=== PATIENT | male | born 1945 | race Caucasian/White ===

== ENCOUNTER 2020-12-27 17:39 | Emergency (ER) | payer MEDICARE, SELFPAY ==
[2020-12-27 18:00] VITALS: BP 107/60; PULSE 69; RESP 18; TEMP 35.7; O2SAT 99; BMI 24.5
[2020-12-27] MEDS: LIDO 1%/SOD BICARB 8.4% (10ML) 10 ML SYRINGE INJ (18:05)
[2020-12-27] MEDS: ACETAMINOPHEN 325 MG TABLET 650 MG PO (19:17)
[2020-12-27] MEDS: IBUPROFEN 400 MG TABLET PO (19:18)
--- NOTE | 2020-12-27 19:27 | ED_ITS ---
HPI - Extremity Injury (Lower) <CRISTIANE Ervin - Last Filed: 12/27/20 19:35> General Chief Complaint: Extremity Injury, Lower Stated Complaint: RT SHAW LACERATION POST FALL Time Seen by Provider: 12/27/20 17:52 Source: patient Mode of arrival: Family Vehicle Limitations: no limitations History of Present Illness HPI Narrative: 75-year-old male presents to the ED with right lower leg laceration after tripping on a step while going stairs and cutting his leg on [place]. He reports that he did not hit his head, he wrapped his leg with a pressure dressing and bleeding was controlled at the time of injury. His right leg laceration is approximately 6 cm long and through the subcutaneous layer. He did not take any medications prior to arrival. Related Data Home Medications Medication Instructions Recorded Confirmed tamsulosin 0.4 mg capsule (Flomax) 0.8 mg PO BID #0 05/03/12 Allergies Allergy/AdvReac Type Severity Reaction Status Date / Time egg [EGG] Allergy Unknown egg white Verified 12/27/20 18:05 Penicillins [PENICILLINS] Allergy Unknown Verified 12/27/20 18:05 prednisone [PREDNISONE] AdvReac Unknown hallucinati Verified 12/27/20 18:05 ons Review of Systems <CRISTIANE Ervin - Last Filed: 12/27/20 19:35> Review of Systems Narrative: General: denies fever, chills Head/Neck: denies headache, neck pain Eyes: denies visual changes, eye pain Cardio: denies chest pain, palpitations Respiratory: denies shortness of breath, cough GI: denies abdominal pain, nausea, vomiting, or diarrhea : denies dysuria, hematuria MSK: denies joint pain, muscle weakness Skin: denies rash, itching, right lower leg laceration Neuro: denies numbness, tingling Patient History <CRISTIANE Ervin - Last Filed: 12/27/20 19:35> Social History Smoking Status: Never smoker Smoking Status: Never smoker alcohol intake frequency: 0-2 drinks per day Substance Use Type: does not use Exam <CRISTIANE Ervin - Last Filed: 12/27/20 19:35> Narrative Exam Narrative: Independently reviewed vitals signs and nursing notes. General: Awake, alert, nontoxic, no cardiorespiratory distress Head/Neck: Atraumatic, neck full range of motion Eyes: EOMI, conjunctiva normal Nose: nares patent, no rhinorrhea Mouth/Throat: moist mucus membranes, posterior pharynx normal, no oral lesions Cardio: Regular rate and rhythm, no peripheral edema Respiratory: respirations unlabored without wheezing, stridor, or rales. No retractions. GI: Abdomen soft, nontender MSK: Moves all extremities, neurovascularly intact Skin: Normal capillary refill, no rash, right lower leg laceration is anterior, linear, mid shaft, 6 cm long, wound was irrigated with normal saline and hemostasis is achieved. Neuro: Normal speech and cognition, normal gait Initial Vital Signs Initial Vital Signs: Vital Signs Temperature 96.2 F L 12/27/20 18:00 Pulse Rate 69 12/27/20 18:00 Respiratory Rate 18 12/27/20 18:00 Blood Pressure 107/60 12/27/20 18:00 Pulse Oximetry 99 12/27/20 18:00 <Laura Fontana DO - Last Filed: 12/28/20 04:24> Initial Vital Signs Initial Vital Signs: Vital Signs Temperature 96.2 F L 12/27/20 18:00 Pulse Rate 69 12/27/20 18:00 Respiratory Rate 18 12/27/20 18:00 Blood Pressure 107/60 12/27/20 18:00 Pulse Oximetry 99 12/27/20 18:00 Procedures <CRISTIANE Ervin - Last Filed: 12/27/20 19:35> Laceration Repair Laceration 1: Time of procedure: 19:00 Site: lower extremity Side (If applicable): right Size (cm): 6 Description: linear Depth: simple, single layer Local Anesthetic: lidocaine 1% and with bicarb Amount of anesthesia used (mL): 5 Pre-repair: wound explored and irrigated extensively Skin layer closed with: nylon Size (cm): 4-0 Number of sutures: 14 Technique: simple, interrupted Course <CRISTIANE Ervin - Last Filed: 12/27/20 19:35> Orders Ordered: Discontinued Medications Acetaminophen (Acetaminophen 325 Mg Tablet) 650 mg PO NOW ONE Stop: 12/27/20 19:12 Last Admin: 12/27/20 19:17 Dose: 650 mg Documented by: DANDY Bacitracin (Bacitracin Oint 0.9 Gm Pckt) 1 applic TOP NOW ONE Stop: 12/27/20 19:25 Last Admin: 12/27/20 19:28 Dose: 1 applic Documented by: DANDY Ibuprofen (Ibuprofen 600 Mg Tablet) 600 mg PO NOW ONE Stop: 12/27/20 18:39 Last Admin: 12/27/20 19:11 Dose: Not Given Documented by: DANDY Ibuprofen (Ibuprofen 400 Mg Tablet) 400 mg PO NOW ONE Stop: 12/27/20 19:12 Last Admin: 12/27/20 19:18 Dose: 400 mg Documented by: DANDY Lidocaine/Sodium Bicarbonate (Lido 1%/Sod Bicarb 8.4% (10ml) 10 Ml Syringe) 10 ml INJ NOW ONE Stop: 12/27/20 18:01 Last Admin: 12/27/20 18:05 Dose: 10 ml Documented by: DANDY Vital Signs Vital signs: Vital Signs - 8 hr 12/27/20 18:00 Temperature 96.2 F L Pulse Rate 69 Respiratory Rate 18 Blood Pressure 107/60 Pulse Oximetry 99 <Laura Fontana DO - Last Filed: 12/28/20 04:24> Orders Ordered: Discontinued Medications Acetaminophen (Acetaminophen 325 Mg Tablet) 650 mg PO NOW ONE Stop: 12/27/20 19:12 Last Admin: 12/27/20 19:17 Dose: 650 mg Documented by: DANDY Bacitracin (Bacitracin Oint 0.9 Gm Pckt) 1 applic TOP NOW ONE Stop: 12/27/20 19:25 Last Admin: 12/27/20 19:28 Dose: 1 applic Documented by: DANDY Ibuprofen (Ibuprofen 600 Mg Tablet) 600 mg PO NOW ONE Stop: 12/27/20 18:39 Last Admin: 12/27/20 19:11 Dose: Not Given Documented by: DANDY Ibuprofen (Ibuprofen 400 Mg Tablet) 400 mg PO NOW ONE Stop: 12/27/20 19:12 Last Admin: 12/27/20 19:18 Dose: 400 mg Documented by: DANDY Lidocaine/Sodium Bicarbonate (Lido 1%/Sod Bicarb 8.4% (10ml) 10 Ml Syringe) 10 ml INJ NOW ONE Stop: 12/27/20 18:01 Last Admin: 12/27/20 18:05 Dose: 10 ml Documented by: DANDY Vital Signs Vital signs: Vital Signs - 8 hr 12/27/20 18:00 Temperature 96.2 F L Pulse Rate 69 Respiratory Rate 18 Blood Pressure 107/60 Pulse Oximetry 99 [facility] - Extremity Injury (Lower) <Denia Thomson, [facility] - Last Filed: 12/27/20 19:35> [facility] Narrative Medical decision making narrative: 75-year-old male presents to the ED for right lower leg laceration status post tripping on a flex on stop and falling into it, cutting his leg. Bleeding is controlled, wound was irrigated with normal saline, wound edges approximated with 4-0 Ethilon, 14 sutures in total. Patient has mild erythema and edema surrounding wound. Wound was dressed with bacitracin, Telfa, gauze and an Umberto wrap. Patient was instructed to follow-up with his PCP in 8-10 days for suture removal or sooner if he develops any signs and symptoms of infection. Patient is appropriate and amenable to discharge home. Vital signs are stable on repeat examination is unremarkable. Patient has been informed of results. Patient has been given strict return to ER precautions for any new or worsening symptoms. Patient understands to follow up closely with outpatient providers as instructed. Patient understands plan and agrees to discharge home. All questions and concerns answered at this time. Discharge Plan Departure Patient Disposition: Home Clinical Impression: Laceration Instructions: DI for Laceration Repair Activity Restrictions/Additional Instructions: It was nice to meet you today. have been diagnosed with a laceration to your right leg. Please keep wound clean and covered, use bacitracin or antibiotic ointment over the sutures and cover with a gauze and wrap if desired. After a few days it may it open to air if not getting 30. He uses ibuprofen this and Tylenol for pain. Okay to ice this, elevate to reduce the swelling, and see your primary care provider in 8-10 days to have the stitches removed. If you develop any redness, swelling, purulent drainage please return to the ER for antibiotics or see your PCP sooner. *What to do: *Please continue to take your regular medications as directed. [ ] New medication prescriptions sent to your pharmacy: [ ] [ ] New medication written as a paper prescription [ x] No new medications given *Please follow up with your primary care provider in 2-3 days, call for an appointment. Let them know you were seen in the Emergency Department and that we ask that you be seen in follow up. We will electronically transmit a record of today's note if your PCP is in our system *If you do not have a primary care provider please contact the [facility] Resource line at [phone]. They will ask some questions about your medical history and help get you set up with a doctor in the community. *Return to Emergency Department if you should have any new, worsening or concerning symptoms, such as [fever greater than 101F, chills, worsening pain, persistent vomiting or other bothersome symptoms] Prescriptions: No Action tamsulosin [Flomax] 0.4 MG capsule,extended release 24hr 0.8 mg PO BID Qty: 0 RF: 0 Referrals: Vivek Kennedy MD [Primary Care Provider] - <Laura Fontana DO - Last Filed: 12/28/20 04:24> Cosign ED Attending Coscourtneyature Attestation: I was immediately available in the department for consultation. Documentation has been reviewed. I agree with assessment and plan.
[2020-12-27] MEDS: BACITRACIN OINT 0.9 GM PCKT 1 APPLIC TOP (19:28)
[2020-12-27 19:40] VITALS: BP 137/63; PULSE 77; RESP 16; O2SAT 100
== END 2020-12-27 19:40 | disposition home or self-care (01) ==
PROVIDERS: Emergency Provider Nurse Practitioner Critical Care Medicine; PCP Internal Medicine
DX: S81.811A Laceration without foreign body, right lower leg, initial encounter (principal); W01.198A Fall on same level from slipping, tripping and stumbling with subsequent striking against other object, initial encounter
CPT/HCPCS: 12002; 99283

== ENCOUNTER → 2022-10-13 10:43 | Outpatient (CLI) | payer OTHER, SELFPAY ==
--- NOTE | 2022-10-13 | DI.RAD.S_ITS ---
PROCEDURE: XR HIP W PEL IF DONE RT 2V INDICATIONS: RIGHT ANTERIOR HIP PAIN TECHNIQUE: AP pelvis with lateral view of the right hip. COMPARISON: None. FINDINGS: Bones: No acute fractures or dislocations. Pelvic ring appears intact. No suspicious bony lesions. There is mild to moderate osteoarthrosis of the hips bilaterally with joint space narrowing, subchondral sclerosis, subchondral cystic changes, and marginal osteophyte formation. Degenerative changes are seen in the included lumbar spine as well as in the sacroiliac joints. Soft tissues: The visualized bowel gas pattern is normal. No suspicious soft tissue calcifications. IMPRESSION: [id number] bilateral hip osteoarthrosis. Approved by: Kaden Hernandez M.D. on 10/13/2022 at 16:22
== END ==
PROVIDERS: PCP Internal Medicine; Referring Provider Internal Medicine; Visit Provider Internal Medicine
DX: M25.551 Pain in right hip (principal); M16.0 Bilateral primary osteoarthritis of hip
CPT/HCPCS: 73502

== ENCOUNTER → 2023-05-24 10:43 | Outpatient (CLI) | payer OTHER, SELFPAY ==
--- NOTE | 2023-05-24 10:46 | DI.RAD.S_ITS ---
PROCEDURE: XR HIP W PEL IF DONE LT 2V INDICATIONS: LEFT HIP PAIN TECHNIQUE: AP pelvis with lateral view(s) of the left hip(s). COMPARISON: [facility], , XR HIP W PEL IF DONE RT 2V, 10/13/2022, 10:49. FINDINGS: Bones: No fractures or dislocations. Pelvic ring appears intact. No suspicious bony lesions. Nonuniform joint space narrowing with osteophytosis and subchondral cystic change of the acetabulum. Soft tissues: The visualized bowel gas pattern is normal. No suspicious soft tissue calcifications. IMPRESSION: Moderate left hip osteoarthritis. Dictated by: Adalberto Nelson M.D. on 05/24/2023 at 15:12 Approved by: Adalberto Nelson M.D. on 05/24/2023 at 15:14
== END ==
PROVIDERS: PCP Internal Medicine; Referring Provider Internal Medicine; Visit Provider Internal Medicine
DX: M25.552 Pain in left hip (principal); M16.12 Unilateral primary osteoarthritis, left hip
CPT/HCPCS: 73502